=== PATIENT | female | born 1935 | race Caucasian/White ===

== ENCOUNTER 2017-09-28 10:28 | Day surgery (SDC) | payer MEDICARE, BC ==
[~2017-09-28] VITALS: Ht 160 cm; Wt 68.2 kg
[2017-09-28] MEDS ORDERED: IOHEXOL 350 MG/ML 50 ML BTL (for Cath Lab) OTHER ONE (10:29)
[2017-09-28 11:06] VITALS: BP 146/73; PULSE 73; RESP 18; TEMP 97.8; O2SAT 97
[2017-09-28] MEDS ORDERED: ELDE118L PO (11:15)
[2017-09-28] MEDS ORDERED: ASPI81TA23 PO (11:15)
[2017-09-28] MEDS ORDERED: MULT1PAK PO (11:15)
[2017-09-28] MEDS ORDERED: IBUP200T47 PO (11:15)
[2017-09-28] MEDS ORDERED: [UNRECOGNIZED DRUG - CODE] PO (11:15)
[2017-09-28] MEDS ORDERED: [UNRECOGNIZED DRUG - CODE] PO (11:15)
[2017-09-28] MEDS ORDERED: ADVI200T17 PO (11:15)
[2017-09-28] MEDS ORDERED: CARBSOL EACH EYE (11:15)
[2017-09-28 11:37] LABS: AUTOMATED NEUTROPHIL # 5.1 TH/MM3 (1.8-7.7); BASOPHIL # 0.1 TH/MM3 (0-0.2); BASOPHIL % 0.7 % (0.0-2.0); EOSINOPHIL # 0.2 TH/MM3 (0-0.4); EOSINOPHIL % 2.3 % (0.0-4.0); HEMATOCRIT 38.6 % (35.0-46.0); HEMOGLOBIN 13.3 GM/DL (11.6-15.3); LYMPH % 21.2 % (9.0-44.0); LYMPHOCYTE # 1.6 TH/MM3 (1.0-4.8); MEAN CELL VOLUME 94.2 FL (80.0-100.0); MEAN CORPUSCULAR HEMOGLOBIN 32.4 PG (27.0-34.0); MEAN CORPUSCULAR HGB CONC 34.4 % (32.0-36.0); MEAN PLATELET VOLUME 8.6 FL (7.0-11.0); MONO % 6.7 % (0.0-8.0); MONOCYTE # 0.5 TH/MM3 (0-0.9); NEUT % 69.1 % (16.0-70.0); PLATELET COUNT 244 TH/MM3 (150-450); RED CELL DISTRIBUTION WIDTH 13.4 % (11.6-17.2); WHITE BLOOD COUNT 7.4 TH/MM3 (4.0-11.0)
[2017-09-28 11:51] LABS: BICARBONATE 30.6 MEQ/L (21.0-32.0); CALCIUM 9.1 MG/DL (8.5-10.1); CREATININE 0.79 MG/DL (0.50-1.00)
[2017-09-28 11:57] LABS: PROTHROMBIN TIME - PATIENT 10.3 SEC (9.8-11.6)
[2017-09-28] MEDS ORDERED: NS 1000P @30 MLS/HR (KVO) IV SCH (12:00)
[2017-09-28] MEDS ORDERED: MIDAZOLAM HCL 2 MG/2 ML VIAL ONE (12:51)
[2017-09-28] MEDS ORDERED: HEPARIN-NS/PF INJ 1,000 ML ONE (12:51)
--- NOTE | 2017-09-28 13:59 | CATHPROC ---
Copybar HIS Report Study Information Study Number Admission Scheduled Start Study Start [id number] Sep 28 2017 10:28AM 09/28/2017 Sep 28 2017 12:50PM [place] [facility] Catheterization Admit Source Facility Department Other [facility] - Nurse Head Physician and Clinical Staff Initial Jana Morin Paper Sales Representative Ashwini Hicks RN Paper Sales Representative Benny RODGERS, Pablito Recorder Nathaniel Dias,RT(R) Scrub Daren Howard RCIS(BS) Procedures Performed Procedure Location (Site) Vessel Name Coronary Angiograms RCA Right Coronary L Heart Cath LV Gram-hand inj. LV LV Ventricle Equipment Time Gallery Assistant Description Size Mfg Part Number Used/Scraped TRANSDUCER, TRNexDefenseAVE [id number] 12:53 SAXENA SARABIA * Used W/STOCKCOCK *[id number] INTRODUCER SET, 12:53 [employer] FR 5 [id number] *[id number] Used MICROPUNCTURE, STIFFENED 538-476 *[id number] 538-420 *[id number] [id number] *[id number] 12:53 [employer] INDUSTRIES PACK, CCL CUSTOM * Used *[id number] 12:53 [employer] PACER PEN, SKIN DUAL W/ RULER * Used *[id number] 12:53 [employer] WIRE, 3MMJ .035 180CM 180CM Used *[id number] PROBE COVER, STERILE [id number] 12:53 Cantimer * Used ULTRASOUND W/ GEL *[id number] 12:53 NAMIC MANIFOLD, 4 PORT * Used *[id number] 12:53 NYCOMED OMNIPAQUE, 350 MG, 150ML 150ML [id number] Used [id number] 12:53 [employer],WARM AIR CCL * Used *[id number] 12:53 [employer] MEDICAL SHEATH, FR4 TERUMO (10CM) FR 4 Used *[id number] History: Current Medications Medication Dosage/Unit Route Frequency Last Date/Time Taken ASA History: Allergies Allergy Reaction Penicillins codeine History: Risk Factors Family History of Hypertension Dyslipidemia Previous TX Previous Heart Failure Premature CAD No Yes No No No Prior Valve Prior PCI Prior CABG Surgery No No No Cerebrovascular Peripheral Artery Chronic Lung On Dialysis Diabetes Disease Disease Disease No No No Yes No History: Symptoms/Diagnosis Selection Items SOB History: Stress Tests Stress or Imaging Studies Performed No History: Other Disease Selection Items COPD History: Other Current Smoker Method Quit Packs a Day Years Used Pack Years No Cigarettes 35 Years Ago 1 30 30 Labs Hgb (g/dl) Hct (%) RBC (MIL/MM3) WBC (l/cumm) Platelets (thousands) 11.60-17.00 35.00-51.00 4.00-5.90 4.00-11.00 150.00-450.00 13.0 38 4.1 7.4 244 Glucose (mg/dl) BUN (mg/dl) Creatinine (mg/dl) BUN:Creatinine (1:x) 74.00-106.00 7.00-18.00 0.50-1.30 10.00-20.00 89 13 0.7 18.6 Na (meq/l) K (meq/l) Cl (meq/l) CO2 (mmol/L) Ca (mg/dl) 136.00-145.00 3.50-5.10 98.00-107.00 21.00-32.00 8.50-10.10 142 3.5 105 30.6 9.1 PT (sec) PTT (sec) INR (PTT:PT) 9.80-11.60 24.30-30.10 0.90-1.10 10.3 26 1 CPK-MB (ng/ML) 0.50-3.60 Not Drawn Medication Medication Total Dose (Bolus/Oral) Medication Total Dosage/Unit 1% XYLOCAINE 20 mL FENTANYL 50 mcg VERSED 2 mg Medications (Bolus/Oral) Medication Time Given Dosage/Unit Administered By Reason VERSED 09/28/2017 1:27:47 PM 2 mg Ashwini Hicks 2 mg VERSED given in lab by Ashwini Hicks, RN in Right Forearm via Peripheral IV. FENTANYL 09/28/2017 1:27:54 PM 50 mcg Ashwini Hicks 50 mcg FENTANYL given in lab by Ashwini Hicks RN in Right Forearm via Peripheral IV. 1% XYLOCAINE 09/28/2017 1:30:12 PM 20 mL Jana Brown 20 mL 1% XYLOCAINE given in lab by Jana Brown in Right Groin via Subcutaneous. Medication (Drip) Medication Time Given Dosage/Unit Concentration/Unit Diluent (ml) Solution IV Solutions 09/28/2017 12:51:06 PM 0 mL (IV) 500 NaCl .9 IV Solutions given in lab by Ashwini Hicks, RN in Right Antecubital via Peripheral IV. Pump/Drip Fl ow = 20 ml/hr using NaCl .9. Initial Case Assessment Cardiovascular HR Rhythm NIBP Chest Pain 69 Sinus 157/65 0 Edema Present Skin color Skin None Normal Warm Dry Circulatory - Right Pulses Dorsalis Pedis Femoral 3 3 Scale (0,1,2,3,4,d) Scale (0,1,2,3,4,d) Neurological State Oriented to time-place- Alert Moves all extremities person Respiration - General Respiration Rate SpO2 (%) O2 (lpm) (B/min) 20 100 0 Final Case Assessment Cardiovascular HR Rhythm NIBP Chest Pain 75 Sinus 139/65 0 Edema Present Skin color Skin None Normal Warm Dry Circulatory - Right Pulses Dorsalis Pedis Femoral 3 3 Scale (0,1,2,3,4,d) Scale (0,1,2,3,4,d) Neurological State Oriented to time-place- Alert Moves all extremities person Respiration - General Respiration Rate SpO2 (%) O2 (lpm) (B/min) 14 95 0 Chronological Log Time Study Chronological Log 12:50:51 Patient arrived via Bed. 12:50:54 Patient Name, D.O.B, / Armband Verified By R.N. 12:50:55 Consent signed by the physician and the patient and verified by the Nurse Head staff. 12:50:56 Pre-op and post- op instructions given; patient acknowledges understanding of instructions. 12:50:56 Verbal Stimulation=2 Physical Stimulation=2 Airway=2 Respiration=2 TOTAL=8. (0=absent, 1=li mited, 2=present) 12:50:57 Presedation assessment performed by Nurse Head RN. 12:51:01 Patient has been NPO for More than 6Hrs. 12:51:02 Skin Breakdown- none per patient. 12:51:03 Patient Warmer Placed on the Table. 12:51:04 Yamila Prominences Protected 12:51:05 A # 20 IV was noted in the Forearm (right). Grade = 0 IV Solutions given in lab by Ashwini Hicks, RN in Right Antecubital via Peripheral IV. Pump/D rip Flow = 20 ml/hr 12:51:06 using NaCl .9. Assessment: Initial Case, HR=69 BPM, Rhythm=Sinus, LPOK=975/65 mmhg, Chest Pain=0, Edema=None, Color=Normal, Skin = Warm, Dry 12:51:09 Right Pulses: Porfirio Ped=3, Femoral=3 Neurological: State=Alert, Ox3, SMITH Respiration: Resp=20 B/min, SbX9=820 %, O2=0 lpm 12:51:09 History and physical on the chart or being dictated. Vitals capture started with the following parameters, Patient=Adult, Interval=5 min, Initial Pr rbghsq=080 mmHg, 12:56:53 Deflation Rate=5 mmHg, Cuff placed on Right Arm 12:58:03 HR=16 bpm, XJPX=966/65 mmhg, RlY8=240.0 %, Resp=20 B/min, Pain=0, Bee=10, Robb=2 12:59:05 Right groin prepped with 2% chlorhexidine, and draped after a 3 min. waiting time. 12:59:11 MD paged 13:02:31 HR=69 bpm, ULEE=286/71 mmhg, IeJ0=054.0 %, Resp=11 B/min, Pain=0, Bee=10, Robb=2 13:03:50 Reference ECG taken 13:05:48 Pressure channel 1 zeroed. 13:07:32 HR=69 bpm, DIMC=117/69 mmhg, HaX1=272.0 %, Resp=11 B/min, Pain=0, Bee=10, Robb=2 13:12:29 HR=74 bpm, SNWA=857/73 mmhg, DtN8=784.0 %, Resp=19 B/min, Pain=0, Bee=10, Robb=2 13:17:32 HR=69 bpm, QWHP=377/63 mmhg, SpO2=97.0 %, Resp=15 B/min, Pain=0, Bee=10, Robb=2 13:22:29 HR=77 bpm, ZYJR=161/78 mmhg, SpO2=99.0 %, Resp=17 B/min, Pain=0, Bee=10, Robb=2 13:24:26 MD arrived. 13:27:35 HR=68 bpm, VDLD=794/59 mmhg, SpO2=98.0 %, Resp=12 B/min 13:27:47 2 mg VERSED given in lab by Ashwini Hicks, RN in Right Forearm via Peripheral IV. 13:27:54 50 mcg FENTANYL given in lab by Ashwini Hicks, RN in Right Forearm via Peripheral IV. Time Out. Correct patient, correct procedure, correct physician, power injector not loaded with contrast with surgical 13:28:45 team present. Time Out Concurred by MD and individual staff in procedure. 13:28:56 Case Start 13:30:12 20 mL 1% XYLOCAINE given in lab by Jana Brown in Right Groin via Subcutaneous. 13:31:47 Access site was Right Femoral Artery. 13:32:32 HR=71 bpm, DJAB=217/65 mmhg, SpO2=91.0 %, Resp=11 B/min, Pain=0, Bee=10, Robb=2 A INTRODUCER SET, MICROPUNCTURE, STIFFENED FR 5 was advanced into the Fem Art (right) using the 13:33:27 Percutaneous technique. A JL 4.0 INFINITI CATHETER FR 4 was advanced over a wire. OMNIPAQUE, 350 MG, 150ML 150ML was us ed for 13:33:36 injections. Recorded Pressure: Ao, HR=74, Condition=Condition 1 13:34:31 (Aorta) Ao 130/50/83 13:37:33 HR=71 bpm, PXLY=073/61 mmhg, SpO2=92.0 %, Resp=11 B/min, Pain=0, Bee=10, Robb=2 After removing the current catheter a 3DRC INFINITI CATHETER FR 4 was advanced over a WIRE, 3MM J .035 180CM 13:38:23 180CM. 13:39:54 The RCA was injected and visualized at various angles. OMNIPAQUE, 350 MG, 150ML 150ML used . After removing the current catheter a PIGTAIL ANG. INFINITI CATHETER FR 4 was advanced over a W OMAR, 3MMJ .035 13:40:56 180CM 180CM. Recorded Pressure: LV, HR=75, Condition=Condition 1 13:42:22 (Left Ventricle) LV 140/3/20 13:42:32 HR=74 bpm, OOSR=061/65 mmhg, SpO2=95.0 %, Resp=12 B/min, Pain=0, Bee=10, Robb=2 13:42:40 The LV was manually injected with ~CCS~ cc's and visualized. contrast used. Recorded Pressure: LV, Ao, HR=76, Condition=Condition 1 13:42:52 (Left Ventricle) LV 141/7/23, (Aorta) Ao 142/54/92 13:43:32 Catheter was removed 13:43:36 Case End Assessment: Final Case, HR=75 BPM, Rhythm=Sinus, CNGD=906/65 mmhg, Chest Pain=0, Edema=None, Color=Normal, Skin = Warm, Dry 13:45:07 Right Pulses: Porfirio Ped=3, Femoral=3 Neurological: State=Alert, Ox3, SMITH Respiration: Resp=14 B/min, SpO2=95 %, O2=0 lpm 13:47:33 HR=72 bpm, ZWZC=719/65 mmhg, SpO2=96.0 %, Resp=11 B/min, Pain=0, Bee=10, Robb=2 13:47:38 Sheath removed; pressure applied to access site. 13:47:59 No case complications noted. 13:48:00 Cine recording checked. 13:48:36 Bedside Report will be given. 13:48:42 A Left Heart Cath was performed. 13:52:34 HR=71 bpm, PECF=319/67 mmhg, SpO2=98.0 %, Resp=22 B/min, Pain=0, Bee=10, Robb=2 13:57:35 HR=75 bpm, CAAZ=379/69 mmhg, SpO2=97.0 %, Resp=27 B/min, Pain=0, Bee=10, Robb=2 13:58:40 Sterile dressing applied to site 13:58:46 Vitals capture stopped. 14:01:10 [facility] - Contrast Media Used In Study Contrast Total Opened (mL) Total Used (mL) Total Wasted (mL) Omnipaque 150 40 110 End Study - Maximum Contrast Load Max Contrast Load (mL) 487.0 End Study - Radiation Exposure Fluoro Time (minutes) 2.5 End Study - Patient Disposition Complications Transferred To Interventional Outcome No Outpatient Bed No attempt made
[2017-09-28] MEDS ORDERED: MISC INFORMATION XX ONE (14:15)
[2017-09-28] MEDS ORDERED: SODIUM CHLOR 0.9% 1000 ML INJ 1,000 ML IV SCH (15:00)
--- NOTE | 2017-09-29 13:27 | EKG ---
Date Performed: 09/28/2017 Time Performed: 11:18:24 PTAGE: 82 years EKG: Sinus rhythm with PVC(s). Poor R wave progression - probable normal variant Septal and lateral ST-T changes may b e due to myocardial ischemia Abnormal ECG NO PREVIOUS TRACING DOCTOR: Naldo Vigil Interpretating Date/Time 09/29/2017 13:27:18
--- NOTE | 2017-09-29 18:55 | MA ---
cc: JANA BROWN M.D. KATHERYN BANERJEE DATE: 09/28/2017. PROCEDURE PERFORMED: 1. Sedation. 2. Left heart catheterization INDICATIONS FOR THE CATHETERIZATION: Unstable angina. [place] [employer] Class 3. CONSENT: Full informed consent was obtained prior to the procedure. The risks of , bleeding, myocardial infarction, perforation, aspiration, foreseen and unforeseen complications were reviewed. The patient fully appeared to understand the risks. BRIEF HISTORY: This is a very pleasant 82-year-old white female who just returned from [place] where she was having trouble of marked shortness of breath. She had severe chest pain especially when lying down flat at night and some nonspecific S-T-T wave changes on her EKG. Because of this, it was decided she probably had decubitus unstable angina and was recommended to have a diagnostic heart catheterization. The risks of heart catheterization including , bleeding, myocardial infarction, perforation, aspiration, foreseen and unforeseen complications were reviewed and the patient fully appeared to understand the risks. DESCRIPTION OF THE PROCEDURE IN DETAIL: The patient was prepped and draped in the usual sterile manner. The right femoral artery was entered using the micropuncture technique with ultrasound via the 4-[place] sheath. Left and right coronary catheters and pigtail catheter in the left ventricle. Multiple angiographic views were carried out. At the end of the catheterization procedure, all catheters and sheaths were removed. Manual pressure was applied. The patient was transferred to the recovery room in stable condition. FINDINGS: 1. HEMODYNAMICS: The aortic pressure was 142/54 with a mean of 92. The left ventricular pressure was 141 with left ventricular end diastolic pressure of 23. There was no evidence of significant gradient on pullback across the LV outflow tract and aortic valve. 2. LEFT VENTRICULOGRAM: The overall left ventricular ejection fraction was 60%. There was no evidence of significant mitral vegetation or mural thrombus. 3. CORONARIES: The left main was large with evidence of mild calcification. The left anterior descending was a large vessel. There was a large first diagonal branch that was tortuous and free of significant disease. The second diagonal branch was also tortuous and free of significant disease. The circumflex vessel was a medium-sized vessel and it gave off a bifurcating intermediate ramus / obtuse marginal branch that bifurcated and was free of significant disease. The rest of the circumflex vessel was small and also free of significant disease. The right coronary artery was a dominant vessel with a large posterior descending artery and large posterolateral branch. It too is free of significant disease. The left anterior descending had some mild tapering of the proximal LAD of about 30% to 40% which was clinically not significant. CONCLUSIONS: Mild LAD disease of 30% to 40%. No significant stenoses. PLAN Medical management. Jana Brown MD, FRCP,[facility]/JCC /1:53 PM /6:24 PM
== END 2017-09-28 18:28 | disposition home or self-care (01) ==
LOC: HDOC 10:28 → HDIC 10:29 → HDOC 18:28
PROVIDERS: ATTEND Internal Medicine Cardiovascular Disease
DX: R07.9 Chest pain, unspecified (principal); I25.10 Atherosclerotic heart disease of native coronary artery without angina pectoris; R06.02 Shortness of breath; K44.9 Diaphragmatic hernia without obstruction or gangrene; R42 Dizziness and giddiness; E04.1 Nontoxic single thyroid nodule; C20 Malignant neoplasm of rectum
CPT/HCPCS: 80048; 85025; 85610; 85730; 93005; 93458; 99152; C1769; C1893; J1644; J2250; J3010; J7030; Q9967

== ENCOUNTER → 2017-11-08 | Outpatient (CLI) | payer MEDICARE, BC ==
[~2017-11-08] MED LIST: ADVI200T17 PO; ASPI81TA23 PO; CARBSOL EACH EYE; ELDE118L PO; IBUP200T47 PO; MULT1PAK PO; [UNRECOGNIZED DRUG - CODE] PO; [UNRECOGNIZED DRUG - CODE] PO
--- NOTE | 2017-11-13 09:38 | RSPPFT ---
DATE OF PROCEDURE: 11/08/17 COMMENTS: VOLUMES DYNAMIC: FVC and FEV1 moderately reduced. STATIC: TLC, RV and FRC normal. FLOWS: FEV1% mildly reduced; FEF 25-75 moderately reduced. DIFFUSION: Moderately reduced. FLOW VOLUME LOOP: Pattern of variable intrathoracic airways obstruction. IMPRESSION: Moderately severe obstructive ventilatory defect with no significant hyperinflation . Diffusion is moderately reduced. Airways resistance is increased. There is improvement post-bronchodilator,.
== END ==
LOC: HRSP 08:53
PROVIDERS: ATTEND Internal Medicine
DX: R06.02 Shortness of breath (principal); R05 Cough
CPT/HCPCS: 94060; 94618; 94726; 94729